=== PATIENT | female | born 1955 | race Caucasian/White ===

== ENCOUNTER 2018-08-24 12:38 | Emergency (ER) | payer OTHER, MEDICAID ==
[~2018-08-24] VITALS: Ht 144.8 cm; Wt 51.7 kg
[2018-08-24 13:06] VITALS: BP 115/61
--- NOTE | 2018-08-24 13:14 | NUR ---
pt back to er lobby with paper bundler---awaits avaible room for md baez
--- NOTE | 2018-08-24 13:40 | NUR ---
pt returned from radiology in wheelchair to er bed 09
--- NOTE | 2018-08-24 13:42 | NUR ---
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 PER CAREGIVER MECHANICAL FALL IN HER ROOM 2-3 DAYS AGO, LEFT ANKLE SWELLING REDNESS. UNABLE TO BEAR FULL WEIGHT. LEFT EYE DISCOLORATION S/P FALL. PERRLA, BRISK 3 MM. EQUAL FLAKITA STRENGTH TO UPPER AND LOWER EXTREMITIES. HOB UP. BED SIDE RAILS UP X1. ON LOW BED POSITION, LOCKED. ER MADE AWARE OF PT STATUS.
[2018-08-24 15:22] VITALS: BP 108/64
--- NOTE | 2018-08-24 15:22 | NUR ---
Patient discharged with v/s stable. Written and verbal after care instructions given and explained. Patient alert, oriented and verbalized understanding of instructions. Ambulatory with steady gait with assistance of caregiver. All questions addressed prior to discharge. ID band removed. Patient advised to follow up with PMD. Rx of Salicyclic Acid 6% topical cream, Acetaminophen given. Patient educated on indication of medication including possible reaction and side effects. Opportunity to ask questions provided and answered.
== END 2018-08-24 15:22 | disposition home or self-care (01) ==
LOC: MED 12:38
DX: S93.402A Sprain of unspecified ligament of left ankle, initial encounter (principal); S05.12XA Contusion of eyeball and orbital tissues, left eye, initial encounter; L30.9 Dermatitis, unspecified; W06.XXXA Fall from bed, initial encounter; Y93.89 Activity, other specified; Y92.89 Other specified places as the place of occurrence of the external cause; Y99.8 Other external cause status
CPT/HCPCS: 70150; 73610; 99283

== ENCOUNTER 2018-11-04 15:44 | Emergency (ER) | payer OTHER, MEDICAID ==
[~2018-11-04] VITALS: Ht 121.9 cm; Wt 53.1 kg
[2018-11-04 16:00] VITALS: BP 135/66
--- NOTE | 2018-11-04 16:05 | NUR ---
PT AMBULATED TO ER BED 11
--- NOTE | 2018-11-04 16:10 | NUR ---
C/O GENERALIZED BODY RASH FOR A FEW WEEKS. PT REPORTS 6/10 PAIN AND ITCHINESS. DENIES FEVER, COUGH, SOB, N/V/D. DENIES USE OF NEW CREAMS/SOAPS ETC.
[2018-11-04 17:04] VITALS: BP 135/66
--- NOTE | 2018-11-04 17:05 | NUR ---
Patient discharged with v/s stable. Written and verbal after care instructions given and explained. Patient alert, oriented and verbalized understanding of instructions. Ambulatory with steady gait. All questions addressed prior to discharge. ID band removed. Patient advised to follow up with PMD. Rx of CLOTRIMAZOLE & ATARAX given. Patient educated on indication of medication including possible reaction and side effects. Opportunity to ask questions provided and answered.
== END 2018-11-04 17:05 | disposition home or self-care (01) ==
LOC: MED 15:44
DX: L22 Diaper dermatitis (principal); E78.5 Hyperlipidemia, unspecified; E03.9 Hypothyroidism, unspecified; R62.50 Unspecified lack of expected normal physiological development in childhood
CPT/HCPCS: 99283

== ENCOUNTER 2019-02-20 09:44 | Emergency (ER) | payer OTHER, MEDICAID ==
[~2019-02-20] VITALS: Ht 132.1 cm; Wt 48.5 kg
[2019-02-20 09:51] VITALS: BP 111/66
--- NOTE | 2019-02-20 09:58 | NUR ---
PT AMBULATED TO ER BED 02
--- NOTE | 2019-02-20 10:30 | NUR ---
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 PT HAD UNWITNESS FALL YESTERDAY AT THE [facility]. HAS RT BALCK EYE DUE TO FALL. DENIES ANY PAIN AT THIS TIME. NO CONFUSION, HEMEATOMA OR FX NOTED . PT HAS HX OF DOWNS SYNDROME. HAS SKIN PSORIASIS, WORKS WITH POWDER COATER THREE TIMES A WEEK. PT IS AAOX4, ABLE TO COMMUNICATE. DENIES ANY PAIN AT THIS TIME. SEEN BY ER MD.WILL CONTINUE TO MONITOR THE PT.
--- NOTE | 2019-02-20 10:59 | NUR ---
PT BACK FROM CT.
[2019-02-20] MEDS ORDERED: levETIRAcetam 1,000 MG in NACL 0.9% 100 ML IV ONE (11:50)
[2019-02-20] MEDS ORDERED: levETIRAcetam 100 MG/ML VIAL IV ONE (11:54)
--- NOTE | 2019-02-20 12:18 | NUR ---
REPORT GIVEN TO AVIVA DEMPSEY AT [facility].
--- NOTE | 2019-02-20 12:33 | NUR ---
[facility] AT THE BEDSIDE, PT BEING TRANSFERED TO [facility]. PLACED THE PED NECK COLLAR TO STABILIZE THE NECK. PT WAS BACK FROM CT. VS STABLE. BP 129/97, HR 83, RR 20, O2 91% ON RA. DENIES ANY PAIN. PT BEING TARNSFERED FOR HIGHER LEVEL OF CARE.
[2019-02-20 12:36] VITALS: BP 129/97
--- NOTE | 2019-02-20 12:38 | NUR ---
[facility] CREW WAITINGV FOR THE PAPERWORK FOR THE PATIENT. CAREGIVER TO GO TO [facility] ER BY HER CAR. PT STABLE AT THIS TIME.
[2019-02-20 12:45] LABS: BASOPHILS % (AUTO) 0.5 % (0.0-2.0); EOSINOPHILS # (AUTO) 0.9 K/uL (0-0.4); EOSINOPHILS % (AUTO) 9.1 % (0.0-4.0); HEMATOCRIT 40.2 % (36-48); HEMOGLOBIN 13.1 g/dL (12.0-16.0); LYMPHOCYTES # (AUTO) 1.1 K/uL (2.5-16.5); LYMPHOCYTES % (AUTO) 11.9 % (20.5-51.1); MEAN CORPUSCULAR HEMOGLOBIN 32 pg (27-31); MEAN CORPUSCULAR HGB CONC 33 g/dL (33-37); MEAN CORPUSCULAR VOLUME 97.7 fL (80-94); MONOCYTES # (AUTO) 0.6 K/uL (0.8-1.0); MONOCYTES % (AUTO) 6.5 % (1.7-9.3); NEUTROPHILS # (AUTO) 6.8 K/uL (1.8-7.7); PLATELET COUNT (AUTO) 74 K/uL (140-450); RED BLOOD CELL COUNT(AUTO) 4.12 MIL/uL (4.20-5.40); RED CELL DISTRIBUTION WIDTH 15.4 % (11.6-13.7); WHITE BLOOD COUNT (AUTO) 9.5 K/uL (4.8-10.8)
[2019-02-20 12:47] LABS: ANION GAP 13.1 (8-16); CARBON DIOXIDE 26.6 mmol/L (21-32); CREATININE 0.8 mg/dL (0.6-1.3); POTASSIUM 3.7 mmol/L (3.5-5.1)
[2019-02-20 12:55] LABS: PROTHROMBIN TIME 10.4 secs (10.8-13.4)
== END 2019-02-20 12:38 | disposition short-term general hospital (02) ==
LOC: MED 09:44
DX: S06.6X0A Traumatic subarachnoid hemorrhage without loss of consciousness, initial encounter (principal); S00.12XA Contusion of left eyelid and periocular area, initial encounter; Z86.39 Personal history of other endocrine, nutritional and metabolic disease; W18.39XA Other fall on same level, initial encounter; Y92.89 Other specified places as the place of occurrence of the external cause; Y93.89 Activity, other specified; Y99.8 Other external cause status
CPT/HCPCS: 36415; 70450; 72125; 80048; 85025; 85610; 99285; J1953; 99284

== ENCOUNTER 2019-02-22 13:51 | Inpatient (IN) | payer OTHER, MEDICAID ==
[~2019-02-22] VITALS: Ht 144.8 cm; Wt 53.1 kg
[2019-02-22 13:56] VITALS: BP 113/65
--- NOTE | 2019-02-22 14:10 | NUR ---
PATIENT WHEELCHAIR ASSISTED TO BED 6.
--- NOTE | 2019-02-22 14:25 | NUR ---
PT BIB AMBULATORY NURSE TO THE ED WITH THE CHIEF C/O BLEEDING AROUND THE RIGHT EYE AND UPPER LIP X TODAY. BRUISES NOTED AROUND THE RIGHT EYE AND BOTH UPPER AND LOWER LIPS. NO BLEEDING FROM THE SITE AT THIS TIME. PT WAS HERE LAST FRIDAY FOR SAME REASON SEEN HEMORRHAGE IN CT HEAD AND PT WAS TRANSFERRED TO [facility]. PT NOTED WITH CRACKED SKIN ON BOTH HANDS AND FEET, RASHES ALL OVER THE BODY. HX OF PSORIASIS, DOWN SYNDROME. HX OF FALL. PLACED PT ON COMFORTABLE POSITION, COVERED WITH BLANKET. NO C/O PAIN AT THIS TIME. PT EVALUATED BY ER .
--- NOTE | 2019-02-22 14:47 | NUR ---
XRAY AT BEDSIDE
--- NOTE | 2019-02-22 15:01 | NUR ---
LAB AT BEDSIDE
--- NOTE | 2019-02-22 15:15 | NUR ---
NO RESPIRATORY DISTRES NOTED. PT IS SATURATING 100% IN ROOM AIR.
[2019-02-22 15:29] LABS: BASOPHILS # (AUTO) 0.1 K/uL (0.00-0.22); BASOPHILS % (AUTO) 0.6 % (0.0-2.0); EOSINOPHILS # (AUTO) 0.6 K/uL (0-0.4); EOSINOPHILS % (AUTO) 5.6 % (0.0-4.0); HEMATOCRIT 38.4 % (36-48); HEMOGLOBIN 12.5 g/dL (12.0-16.0); LYMPHOCYTES # (AUTO) 1.5 K/uL (2.5-16.5); LYMPHOCYTES % (AUTO) 13.5 % (20.5-51.1); MEAN CORPUSCULAR HEMOGLOBIN 32 pg (27-31); MEAN CORPUSCULAR HGB CONC 33 g/dL (33-37); MEAN CORPUSCULAR VOLUME 97.9 fL (80-94); MONOCYTES # (AUTO) 0.6 K/uL (0.8-1.0); MONOCYTES % (AUTO) 4.9 % (1.7-9.3); NEUTROPHILS # (AUTO) 8.6 K/uL (1.8-7.7); NEUTROPHILS % (AUTO) 75.4 % (42.2-75.2); PLATELET COUNT (AUTO) 87 K/uL (140-450); RED BLOOD CELL COUNT(AUTO) 3.92 MIL/uL (4.20-5.40); RED CELL DISTRIBUTION WIDTH 15.4 % (11.6-13.7); WHITE BLOOD COUNT (AUTO) 11.4 K/uL (4.8-10.8)
[2019-02-22 15:57] LABS: ANION GAP 13.3 (8-16); CARBON DIOXIDE 27.6 mmol/L (21-32); CREATININE 0.9 mg/dL (0.6-1.3); POTASSIUM 3.9 mmol/L (3.5-5.1)
[2019-02-22 15:57] LABS: APPEARANCE,URINE CLEAR (CLEAR); BILIRUBIN,URINE 1+ (NEGATIVE); BLOOD, URINE NEGATIVE (NEGATIVE); LEUKOCYTE ESTERASE ,URINE NEGATIVE (NEGATIVE); NITRITE, URINE NEGATIVE (NEGATIVE); UGLUCOSE NEGATIVE (NEGATIVE)
[2019-02-22 16:03] LABS: COLOR,URINE AMBER (YELLOW)
[2019-02-22] MEDS ORDERED: LORazepam 2 MG/ML VIAL IVP ONE ×2 (16:05→16:35)
[2019-02-22 16:09] LABS: ALBUMIN 2.8 g/dL (3.4-5.0); TOTAL BILIRUBIN 0.3 mg/dL (0.0-1.0)
--- NOTE | 2019-02-22 16:17 | NUR ---
PT MILDLY RESTLESS, REMOVED LAC IV AND MONITOR. STARTED NEW IV 20G ON R FA, COVERED WITH KERLIX. ADMINISTERED ATIVAN IVP WITH EDUCATION ORDERED.
--- NOTE | 2019-02-22 16:30 | NUR ---
CALLED [facility] #[phone] AND MADE REPORT TO WINDMILL MECHANIC GIOVANNI ANNA. REPORT NUMBER PROVIDED WAS [phone].
[2019-02-22] MEDS ORDERED: BACITRACIN OINT 500 UNITS/GM PKT TP ONE ×2 (16:50)
--- NOTE | 2019-02-22 17:45 | NUR ---
PT TAKEN TO CT.
--- NOTE | 2019-02-22 18:02 | NUR ---
BACK FROM CT.
--- NOTE | 2019-02-22 18:32 | NUR ---
RESTING IN BED COMFORTABLY. NO RESPIRATORY DISTRESS NOTED. SATURATING 99% IN ROOM AIR. VSS. DENIES PAIN. CONTINUE TO MONITOR.
--- NOTE | 2019-02-22 18:33 | NUR ---
CALL JAVON FRYE, THE PATROL DRIVER PHONE # [phone] OR [phone] FOR ANY NEEDED INFORMATION OR PT SNAKER.
--- NOTE | 2019-02-22 19:07 | NUR ---
RECEIVED REPORT FROM AVIVA EARL. TRANSFER OF CARE AT THIS TIME.
--- NOTE | 2019-02-22 19:07 | NUR ---
REPORT GIVEN TO AVIVA SHAIKH.
--- NOTE | 2019-02-22 20:15 | NUR ---
BLOOD PRESSURE IS ELEVATED 185/109 AND C/O PAIN. DR. PONCE MADE AWARE. HE SAID GIVE FIRST THE DUE LOPRESSOR AND HE WILL ORDER PAIN MEDICATION. Addendum: 02/23/19 at 0127 by Jeniffer Macias RN CANCEL ABOVE NOTES. WRONG PT.
[2019-02-22] MEDS ORDERED: NACL 0.9% 1,000 ML IV ONE (20:35)
[2019-02-22] MEDS ORDERED: NACL 0.9% 1,000 ML IV SCH (20:49)
[2019-02-22] MEDS ORDERED: HYDROcodone/APAP 7.5/325 MG 1 TAB PO PRN (20:50)
[2019-02-22] MEDS ORDERED: ACETAMINOPHEN 325 MG TAB PO PRN (20:50)
[2019-02-22] MEDS ORDERED: ONDANSETRON 4 MG/2 ML VIAL IM/IVP PRN (20:50)
--- NOTE | 2019-02-22 21:29 | NUR ---
PT RESTING IN BED RECEIVING FLUIDS AT THIS TIME. PT CALM IN BED.
--- NOTE | 2019-02-22 21:42 | NUR ---
JAVON FRYE NOTIFIED ABOUT ADMISSION OF PT.
[2019-02-22 22:02] VITALS: BP 101/55
--- NOTE | 2019-02-22 22:02 | NUR ---
ADMITTED 63 Y/O FEMALE FROM ER. REPORT GIVEN BY RAKING MACHINE OPERATOR NURSE [place]. CAME BY COLLEEN. PT ON TELE MONITOR. PT IS AWAKE BUT CONFUSED. NON-VERBAL AT THIS TIME. PT HAS DISCOLORATION ON RIGHT EYE AND ON BOTH UPPER AND LOWER LIPS. NO SOB OR RESPIRATORY DISTRESS NOTED. 02 SAT 95% ON RA TAKEN AT LEFT EARLOBE. PT HAS THICK, DRY, CRACKED HANDS AND FEET. OVERALL SKIN IS DRY AND SCALY. IV ACCESS ON RIGHT AC GAUGE 20, PATENT, INTACT AND ASYMPTOMATIC. REPOSITIONED PT. COMFORTABLE IN BED. BED IN LOW POSITION. SIDE RAILS UP X2. PADDED FOR SEIZURE PRECAUTION. BED ALARM ON. CALL LIGHT PLACED WITHIN REACH. WILL FOLLOW UP ADMIT ORDERS AND WILL CONTINUE TO MONITOR.
--- NOTE | 2019-02-22 22:03 | NUR ---
MRSA NARES SPECIMEN COLLECTED AND SENT TO LAB.
--- NOTE | 2019-02-22 22:07 | NUR ---
Patient will be admitted to care of DR BRANHAM. Admited to TELE. Will go to room 124A. Belongings list completed. Report to AVIVA GOMEZ.PT STABLE ON TRANSFER OF CARE.
[2019-02-22 22:18] LABS: PROTHROMBIN TIME 10.4 secs (10.8-13.4)
[2019-02-22 22:30] LABS: BARBITURATE, URINE NEG. ng/ml (NEG <=200); BENZODIAZEPINE, URINE NEG. ng/mL (NEG <=200); CANNABINOID, URINE NEG. ng/mL (NEG <=50); COCAINE, URINE NEG. ng/mL (NEG <=300); OPIATE, URINE NEG. ng/mL (NEG <=2000); PHENCYCLIDINE SCREEN,URINE NEG. ng/mL (NEG <=25)
[2019-02-22 23:56] LABS: FREE T4 (FREE THYROXINE) 1.12 ng/dL (0.76-1.46); MAGNESIUM 2.4 mg/dL (1.8-2.4); PHOSPHORUS 3.1 mg/dL (2.5-4.9); THYROID STIMULATING HORMONE 3.5 uIU/mL (0.34-3.74)
[2019-02-23 00:27] LABS: CKMB RELATIVE INDEX 0.7 (0.0-2.5); CREATINE KINASE MB 4.6 ng/mL (0-3.6)
[2019-02-23 00:30] VITALS: BP 84/52
--- NOTE | 2019-02-23 00:55 | NUR ---
BLOOD PRESSURE LOW 84/52. DR. PONCE MADE AWARE WITH ORDER.
[2019-02-23] MEDS ORDERED: NACL 0.9% 1,000 ML IV ONE (01:00)
[2019-02-23 02:00] VITALS: BP 111/61
--- NOTE | 2019-02-23 02:00 | NUR ---
IV BOLUS STILL INFUSING. VITAL SIGNS TAKEN. BP 111/61,HR-90,R-20 AND O2 SAT 99% ON O22L/NC. WILL STILL CONTINUE TO MONITOR.
--- NOTE | 2019-02-23 02:44 | NUR ---
ROUNDS DONE. PT ASLEEP COMFORTABLY ON BED. NO DISTRESS NOTED. VISIBLE CHEST RISE AND FALL NOTED. WILL CONTINUE TO MONITOR.
--- NOTE | 2019-02-23 04:20 | NUR ---
VITAL SIGNS TAKEN. PT SLEEPING COMFORTABLY. NO SIGNS OF SOB OR DISTRESS NOTED. VISIBLE CHEST RISE AND FALL NOTED. WILL CONTINUE TO MONITOR.
[2019-02-23 04:30] VITALS: BP 105/50
[2019-02-23 06:26] LABS: BASOPHILS # (AUTO) 0.1 K/uL (0.00-0.22); BASOPHILS % (AUTO) 0.6 % (0.0-2.0); EOSINOPHILS # (AUTO) 0.7 K/uL (0-0.4); EOSINOPHILS % (AUTO) 6.5 % (0.0-4.0); HEMATOCRIT 39.6 % (36-48); HEMOGLOBIN 12.6 g/dL (12.0-16.0); LYMPHOCYTES # (AUTO) 1.5 K/uL (2.5-16.5); LYMPHOCYTES % (AUTO) 14.4 % (20.5-51.1); MEAN CORPUSCULAR HEMOGLOBIN 32 pg (27-31); MEAN CORPUSCULAR HGB CONC 32 g/dL (33-37); MEAN CORPUSCULAR VOLUME 99.3 fL (80-94); MONOCYTES # (AUTO) 0.6 K/uL (0.8-1.0); MONOCYTES % (AUTO) 5.9 % (1.7-9.3); NEUTROPHILS # (AUTO) 7.7 K/uL (1.8-7.7); NEUTROPHILS % (AUTO) 72.6 % (42.2-75.2); PLATELET COUNT (AUTO) 71 K/uL (140-450); RED BLOOD CELL COUNT(AUTO) 3.99 MIL/uL (4.20-5.40); RED CELL DISTRIBUTION WIDTH 15.9 % (11.6-13.7); WHITE BLOOD COUNT (AUTO) 10.6 K/uL (4.8-10.8)
[2019-02-23 06:53] LABS: ANION GAP 11.3 (8-16); CARBON DIOXIDE 28.8 mmol/L (21-32); CREATININE 0.7 mg/dL (0.6-1.3); POTASSIUM 4.1 mmol/L (3.5-5.1)
--- NOTE | 2019-02-23 07:00 | NUR ---
LAB CALLED FOR NA LEVEL 162. PAGED DR. PONCE,RESIDENT.LEFT MESSAGE AND WAITING FOR CALL BACK.
[2019-02-23 07:04] LABS: CHOL/HDL RATIO 2.8 (1-4.5)
--- NOTE | 2019-02-23 07:20 | NUR ---
ENDORSED PT TO AM SHIFT RN NURSE FOR CONTINUITY OF CARE. PT IN STABLE CONDITION. NO DISTRESS NOTED.
--- NOTE | 2019-02-23 07:21 | NUR ---
RECEIVED BEDSIDE REPORT FROM PRINTING ASSISTANT NURSE. PATIENT IS DROWSY, RESPONSIVE TO TOUCH. APHASIC. ON 3L NC, NO SIGNS OF DISTRESS. NOT AMBULATORY AT THIS TIME, FALL RISK PROTOCOL IN PLACE. SKIN HAS SEVERE PSORIATIC SPONGIOTIC DERMATITIS ON FLAKITA FEET AND FLAKITA HANDS. SHE HAS REDNESS THROUGHOUT BODY. R EYE HAS BRUISE, AND A FEW SCRATCHES, UPPER LIP SWOLLEN WITH SCAB. PATIENT INCONTINENT. IV ON R AC 20G INFUSING NS AT 50. CLEAN, DRY AND INTACT. BED IN LOW POSITION. CALL LIGHT WITHIN REACH. WILL CONTINUE TO MONITOR THE PATIENT
[2019-02-23] MEDS ORDERED: NACL 0.45% 1,000 ML IV SCH ×2 (07:45→09:30)
[2019-02-23 08:00] VITALS: BP 105/59
--- NOTE | 2019-02-23 08:28 | NUR ---
PATIENT HAS BEEN SCREENED AND CATEGORIZED HIGH NUTRITION RISK. PATIENT WILL BE SEEN WITHIN 1-2 DAYS OF ADMISSION. 02/23/19-02/24/[address]
[2019-02-23] MEDS ORDERED: LACTOBACILLUS RHAMNOSUS GG 1 EACH CAP PO SCH (09:00)
[2019-02-23] MEDS ORDERED: levETIRAcetam 500 MG TAB PO SCH (09:00)
--- NOTE | 2019-02-23 09:00 | NUR ---
UNABLE TO GIVE PATIENTS MEDICATIONS AT THIS TIME, TOO DROWSY TO ADMINISTER, DR GARDNER IS AWARE
[2019-02-23] MEDS ORDERED: CYAN100T65 PO (09:58)
[2019-02-23] MEDS ORDERED: VITD1000 PO (09:58)
[2019-02-23] MEDS ORDERED: HYD1C TP (09:58)
[2019-02-23] MEDS ORDERED: LEVE1000 PO (09:58)
[2019-02-23] MEDS ORDERED: CLOB0.0525 TP (09:58)
[2019-02-23] MEDS ORDERED: SYN.075 PO (09:58)
[2019-02-23] MEDS ORDERED: KEN.1O TP (09:58)
[2019-02-23] MEDS ORDERED: LORA10TA19 PO (09:58)
[2019-02-23] MEDS ORDERED: [UNRECOGNIZED DRUG - CODE] TP (09:58)
[2019-02-23] MEDS ORDERED: DEXA5SUS BOTH EYES (09:58)
[2019-02-23] MEDS: BACITRACIN ZINC/POLYMYXIN B OINT 30 GM TUBE TP SCH ×2 (10:07→22:18)
--- NOTE | 2019-02-23 10:15 | NUR ---
SWALLOW EVAL DONE. PATIENT NOT RESPONSIVE TO FEEDINGS, DR ARTEAGA MADE AWARE, SHE SAID OK TO KEEP PATIENT NPO FOR NOW AND WILL UPDATE MEDICATIONS
--- NOTE | 2019-02-23 10:43 | NUR ---
*S.T. Bedside swallow eval completed* See report for details. Pt presents w/ profound oropharyngeal dysphagia c/b no response to oral tactile stimuli, with no attempt to manipulate an oral bolus of P.O. trials presented, despite max cueing and multiple attempts. No pharyngeal swallow response observed. Pt is at high risk of aspiration. Recommend: 1) Continue strict NPO w/ non-oral means of nutrition, hydration and meds. 2) S.T. to follow for swallow tx 2-3 x/1 week w/ P.O. trials. D/w RN Belkys. Pt left in stable condition w/ student nurses present. Time [phone]
[2019-02-23] MEDS ORDERED: DEXT 5% / NACL 0.45% 1,000 ML IV SCH (10:45)
[2019-02-23] MEDS ORDERED: ACETAMINOPHEN 650 MG SUPP RC PRN (10:45)
[2019-02-23] MEDS ORDERED: MORPHINE SULFATE 2 MG/ML SYR IVP PRN (10:45)
[2019-02-23 10:50] LABS: ANION GAP 13.1 (8-16); CARBON DIOXIDE 25.3 mmol/L (21-32); CREATININE 0.7 mg/dL (0.6-1.3); POTASSIUM 3.4 mmol/L (3.5-5.1)
--- NOTE | 2019-02-23 11:14 | NUR ---
DR GARDNER IN THE ROOM SPEAKING TO THE CREW CHIEF FROM [employer]
--- NOTE | 2019-02-23 11:30 | NUR ---
P.T. NOTES UNABLE TO BE SEEN FOR P.TAleksey GARCIA DUE TO PATIENT WAS SLEEPING AND UNABLE TO BE AWAKEN WHEN ATTEMPTED TO EVALUATE. HER 2 CAREGIVERS WERE BOTH AT HER BEDSIDE AND STATES THAT PATIENT DOES NOT NORMALLY SLEEP AT THEIR BOARD AND CARE SO THIS IS UNUSUAL. PLAN: WE'LL FOLLOW UP AGAIN TOMORROW WHEN AND IF SHE IS MORE AWAKE AND ALERT TO PARTICIPATE WITH THE EVALUATION..
--- NOTE | 2019-02-23 13:00 | NUR ---
PATIENT IS SLEEPING. NO SIGNS OF DISTRESS
--- NOTE | 2019-02-23 14:09 | NUR ---
PATIENT IS SLEEPING. PLACED A BOARD ON ARM TO PREVENT HER FROM FOLDING ARM SO IVF CAN GO IN. WILL CONTINUE TO MONITOR
--- NOTE | 2019-02-23 14:10 | NUR ---
02/23/19 RD INITIAL ASSESSMENT COMPLETED PLEASE REFER TO NUTRITION ASSESSMENT UNDER CARE ACTIVITY FOR ESTIMATED NUTRITIONAL NEEDS. 1. CONTINUE NPO TOLERATED 2. ADVANCE DIET PER SWALLOW EVAL RECOMMENDATION. 3. RD TO FOLLOW-UP 2-3 DAYS, HIGH RISK MAYNOR ALVARADO, RD
[2019-02-23 16:00] VITALS: BP 101/47
[2019-02-23] MEDS ORDERED: POTASSIUM CHLORIDE 40 MEQ, LIDOCAINE 1% 25 MG in NACL 0.9% 250 ML IV SCH (16:00)
--- NOTE | 2019-02-23 16:00 | NUR ---
PATIENT IS SLEEPING. WILL CONTINUE TO MONITOR
--- NOTE | 2019-02-23 18:09 | NUR ---
DR ALBA GOT SKIN SCRAPING TO R/O SCABIES
--- NOTE | 2019-02-23 18:46 | NUR ---
administered acosta. 200 out
--- NOTE | 2019-02-23 19:10 | NUR ---
GAVE BEDSIDE REPORT TO SUPERVISOR DIALS NURSE. PATIENT ENDORSED IN STABLE CONDITION
--- NOTE | 2019-02-23 19:25 | NUR ---
RECEIVED BEDSIDE REPORT FROM DAY SHIFT NURSE. PATIENT IS AWAKE, NON-VERBAL, AND CONFUSED. RESPIRATION EVEN UNLABORED ON 3L NC O2. SKIN IS WARM AND DRY. HANDS AND FEET ARE DRY AND SCALY. PATIENT HAS DISCOLORATION ON THE RIGHT EYE. IV PATENT AND INTACT. WILLIS DRAINING YELLOW URINE NOTED. PLAN OF CARE WAS DISCUSSED. ALL SAFETY MEASURES IN PLACE. BED IS AT LOW POSITION. CALL LIGHT WITHIN REACH. WILL CONTINUE TO MONITOR.
[2019-02-23 20:00] VITALS: BP 108/54
--- NOTE | 2019-02-23 20:00 | NUR ---
INITIAL ASSESSMENT DONE. VITALS WERE TAKEN. WILL CONTINUE TO MONITOR.
[2019-02-23] MEDS ORDERED: AMMONIUM LACTATE TP SCH (21:00)
[2019-02-23] MEDS ORDERED: CLOBETASOL PROPIONATE 0.05% TP SCH (21:00)
--- NOTE | 2019-02-23 21:00 | NUR ---
ALL SCHEDULED MEDS WERE GIVEN PER ORDER. NO ASE NOTED. WILL CONTINUE TO MONITOR.
[2019-02-23] MEDS: levETIRAcetam 500 MG in NACL 0.9% 100 ML IV SCH (21:59)
[2019-02-23] MEDS: TRIAMCINOLONE 0.1% OINT 80 GM TUBE TP SCH (21:59)
[2019-02-23] MEDS: PETROLATUM WHITE 30 GM TUBE TP SCH (22:00)
--- NOTE | 2019-02-23 22:00 | NUR ---
PATIENT SLEEPING RESPIRATION EVEN UNLABORED ON 2L NC O2. NO DISTRESS NOTED. WILL CONTINUE TO MONITOR.
[2019-02-24] VITALS: BP 118/65
--- NOTE | 2019-02-24 | NUR ---
VITALS WERE TAKEN. PATIENT IN STABLE CONDITION. WILL CONTINUE TO MONITOR.
--- NOTE | 2019-02-24 02:30 | NUR ---
CHECKED ON PATIENT. PATIENT SLEEPING RESPIRATION EVEN UNLABORED ON 2L NC O2. NO DISTRESS NOTED. WILL CONTINUE TO MONITOR.
[2019-02-24 04:00] VITALS: BP 112/70
--- NOTE | 2019-02-24 04:00 | NUR ---
VITALS WERE TAKEN. PROVIDED GOOD ELVIA CARE AND CATHETER CARE. PATIENT IN STABLE CONDITION. WILL CONTINUE TO MONITOR.
--- NOTE | 2019-02-24 04:47 | NUR ---
PATIENT IV GOT PULLED. NO ACTIVE BLEEDING SEEN. CANNULA TIP INTACT. INSERTED A NEW ONE TO THE RIGHT HAND 24G. WILL CONTINUE TO MONITOR.
[2019-02-24 06:20] LABS: BASOPHILS % (AUTO) 0.4 % (0.0-2.0); EOSINOPHILS # (AUTO) 0.6 K/uL (0-0.4); EOSINOPHILS % (AUTO) 4.9 % (0.0-4.0); HEMATOCRIT 40.6 % (36-48); HEMOGLOBIN 12.8 g/dL (12.0-16.0); LYMPHOCYTES # (AUTO) 1.3 K/uL (2.5-16.5); LYMPHOCYTES % (AUTO) 10.5 % (20.5-51.1); MEAN CORPUSCULAR HEMOGLOBIN 32 pg (27-31); MEAN CORPUSCULAR HGB CONC 32 g/dL (33-37); MEAN CORPUSCULAR VOLUME 100.1 fL (80-94); MONOCYTES # (AUTO) 0.7 K/uL (0.8-1.0); MONOCYTES % (AUTO) 5.9 % (1.7-9.3); NEUTROPHILS # (AUTO) 9.8 K/uL (1.8-7.7); NEUTROPHILS % (AUTO) 78.3 % (42.2-75.2); PLATELET COUNT (AUTO) 64 K/uL (140-450); RED BLOOD CELL COUNT(AUTO) 4.05 MIL/uL (4.20-5.40); RED CELL DISTRIBUTION WIDTH 16.4 % (11.6-13.7); WHITE BLOOD COUNT (AUTO) 12.5 K/uL (4.8-10.8)
[2019-02-24 06:32] LABS: ANION GAP 16.4 (8-16); CARBON DIOXIDE 24.5 mmol/L (21-32); CREATININE 0.8 mg/dL (0.6-1.3); POTASSIUM 3.9 mmol/L (3.5-5.1)
[2019-02-24 06:43] LABS: MAGNESIUM 2.2 mg/dL (1.8-2.4); PHOSPHORUS 2.5 mg/dL (2.5-4.9)
--- NOTE | 2019-02-24 07:05 | NUR ---
RECEIVED BEDSIDE REPORT FROM MEAT MANAGER NURSE, BRODY, AT BEDSIDE. PATIENT IS AWAKE, OX1 TO NAME, NON-VERBAL, AND CONFUSED. RESPIRATION EVEN UNLABORED ON 3L NC O2. SKIN IS WARM AND DRY. HANDS AND FEET ARE CRUSTED AND HAVE FISSURES. PATIENT HAS DISCOLORATION ON THE RIGHT EYE. IV TO THE RIGHT HAND, PATENT AND INTACT, RUNNING D5 1/2NS AT 45ML/HR. WILLIS CATH IN PLACE DRAINING YELLOW URINE. ALL SAFETY MEASURES IN PLACE. FALL AND SZ PRECAUTION IN PLACE. BED IS AT LOWEST POSITION. CALL LIGHT WITHIN REACH. PLACE PT BACK ON TELE MONITOR HOWEVER, PT CONSTANTLY REMOVES IT. WILL CONTINUE TO MONITOR.
--- NOTE | 2019-02-24 07:20 | NUR ---
ENDORSED PATIENT TO DAY SHIFT NURSE. PATIENT IN STABLE CONDITION.
[2019-02-24 08:00] VITALS: BP 114/42
[2019-02-24] MEDS: LORazepam 2 MG/ML VIAL IVP PRN ×2 (08:12→22:50)
--- NOTE | 2019-02-24 08:15 | NUR ---
CLOTH SPREADER HAS CLEANED PT, BED BATH GIVEN.
--- NOTE | 2019-02-24 08:25 | NUR ---
PT HAS PINK RASH ALL OVER HER BODY AND PT IS SCRATCHING HERSELF AND RESTLESS. WILL GIVE ATIVAN TO CALM PT DOWN. Addendum: 02/24/19 at 1610 by Faisal Jiang RN TIME 0805
[2019-02-24] MEDS: DEXTROSE 5% 1,000 ML IV SCH ×2 (09:40→22:50)
[2019-02-24] MEDS: TRIAMCINOLONE 0.1% OINT 80 GM TUBE TP SCH ×2 (09:45→21:02)
[2019-02-24] MEDS: BACITRACIN ZINC/POLYMYXIN B OINT 30 GM TUBE TP SCH ×2 (09:47→21:03)
--- NOTE | 2019-02-24 09:50 | NUR ---
MEDICATION GIVEN, TRIAMCINOLONE APPLIED TO ENTIRE BODY. AND POLYSPORIN CREAM TO LIPS.
[2019-02-24] MEDS: levETIRAcetam 500 MG in NACL 0.9% 100 ML IV SCH ×2 (09:54→21:02)
--- NOTE | 2019-02-24 10:25 | NUR ---
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 HAS BEEN FOLLOW UP OUT PATIENT SOYBEAN SPECIALTIES COOK WITH DR. KULKARNI, RECEIVING UVB X3 WEEK. ALL ABOVE INFORMATION OBTAINED FROM ADMISSION H&P. PT. IS AWAKE, FOLLOW SIMPLE DIRECTIONS WITH GUIDES. PT. HAS NO OPEN ACTIVE WOUND. RIGHT ORBIT AND ELVIA-ORBIT SKIN INTACT WITH PURPLE COLOR BRUISES AND TEARING AT TIMES, NO PAIN. POC DISCUSSED WITH DR. GENTILE AND WILL CONTINUE CURRENT TREATMENTS. RECOMMEND TO CONTINUE TO FOLLOW UP WITH DR. KULKARNI WHEN DISCHARGE. Addendum: 02/24/19 at 1521 by Koki Gan RN (Grace) SCREEN LOW MATHEW SCALE AT RISK, CONTINUE TO FOLLOW PRESSURE ULCER PREVENTION INTERVENTIONS. -TURN AND REPOSITION PATIENT Q 2H -ASSESS AND MONITOR SKIN CONDITION DURING POSITION CHANGE -OFFLOAD BILATERAL HEELS BY PLACING PILLOWS UNDER CALVES AT ALL TIMES, UNLESS OTHERWISE CONTRAINDICATED -PRESSURE REDISTRIBUTION BY PLACING PILLOWS AND OFFLOADING SACRALCOCCYX -KEEP SKIN CLEAN AND DRY AT ALL TIMES.
[2019-02-24 12:00] VITALS: BP 100/51
--- NOTE | 2019-02-24 15:30 | NUR ---
PT'D NEPHEW TALA VISITED. TALA # [phone]. ONLY FAMILY MEMBER LEFT FOR PT. INSTRUCTED TALA ABOUT PPE.
--- NOTE | 2019-02-24 15:40 | NUR ---
TALA HAS TALKED WITH ANTHONY DOWNING.
[2019-02-24 16:00] VITALS: BP 101/45
--- NOTE | 2019-02-24 16:20 | NUR ---
JAVON FROM PT'S SHELTER CAME. JAVON SAID TALA IS USUALLY THE DECISION MAKER IF PT IS NOT ABLE TO SPEAK FOR HERSELF. JAVON SAID PT HAS BEEN UNDER UVB TX WITH THE SOCIAL SERVICES MANAGER.
--- NOTE | 2019-02-24 17:57 | NUR ---
* ST TX NOTE * Pt seen at bedside. Pt alert but moderately to minimally cooperative, appearing to not be in pain at this time d/t lack of facial grimacing, groaning, etc. Pt tolerating 1/3 alternating PO trials of puree apple sauce as well as 1/3 alternating PO trials of honey-thick apple juice, all 1-3 CCs at a time via a spoon w/o s/s of aspiration or choking. Pt however holding 2nd boluses of puree and HTL in oral cavity for extended amount of time, and possibly pocketing boluses. For 3rd round of trials, pt not allowing for PO intake by not opening mandible, and sucking boluses through pt's teeth, but eventually expelling 3rd round of boluses and potentially pocketed 2nd round of boluses out of oral cavity. Pt requiring total assistance to clear oral cavity of residue and pocketed boluses. Nsg Faisal and pt education completed re: pt totally dependent on caregiver for aspiration precautions and oral hygiene, as well as pt presenting with moderate to severe oral preparatory dysphagia at this time, w/pt indifferent but caregiver/Nsg Faisal verbalizing understanding and agreement w/clinician's recommendations. Recommend: - CONTINUE NPO - PROVIDE ORAL CARE/HYGIENE AT LEAST 2X/DAY IN AM & PM - ST to ff 1x/week for 1 more week to assess pt's tolerance for PO intake. - RD referral for possible artificial means of nutrition 2/2 to pt presenting with poor prognosis for obtaining nutrition/hydration through PO intake.
[2019-02-24] MEDS ORDERED: PERMETHRIN 5% 60 GM TUBE TP ONE (18:30)
--- NOTE | 2019-02-24 19:20 | NUR ---
REPORT RECEIVED FROM AM NURSE AT BEDSIDE. PT IN STABLE CONDITION. AAOX0-1. PT IS CONFUSED. BOARD UPDATED. FLACC 0. NO SOB ON RA. AFEBRILE. PT IS BEDBOUND. PT ON SZ PRECAUTION. PT IS NONVERBAL. PT HAS DEVELOPMENTAL DELAY. PT HAS WILLIS IN PLACE. IV SITE R HAND 24G RUNNING D5@75ML/HR PATENT AND INTACT. SKIN WARM, DRY, AND INTACT BUT EXTREMELY DRY. PT HAS FISSURES ON THE HANDS AND FEET AND ARE VERY CRUSTED. BED LOCKED IN LOW POSITION. CALL NARANJO WITHIN REACH. SAFETY PRECAUTION IN PLACE. ALL NEEDS MET AT THIS TIME.
[2019-02-24 19:22] LABS: ALBUMIN 2.4 g/dL (3.4-5.0); ANION GAP 17.8 (8-16); CARBON DIOXIDE 26.6 mmol/L (21-32); CREATININE 0.8 mg/dL (0.6-1.3); POTASSIUM 3.4 mmol/L (3.5-5.1); TOTAL BILIRUBIN 0.3 mg/dL (0.0-1.0)
[2019-02-24 20:00] VITALS: BP 91/45
--- NOTE | 2019-02-24 21:02 | NUR ---
PARUL TAYLOR AND RUNNING. KENALOG, POLYSPORIN, VASELINE, AND PERMETHRIN APPLIED TO SKIN. PT TOLERATED WELL.
[2019-02-24] MEDS: PETROLATUM WHITE 30 GM TUBE TP SCH (21:03)
--- NOTE | 2019-02-24 22:50 | NUR ---
ATIVAN GIVEN FOR AGITATION. PT TOLERATED WELL.
[2019-02-25] VITALS: BP 100/56
--- NOTE | 2019-02-25 00:50 | NUR ---
PT AWAKE AND ALERT. REAPPLIED REMAINING PERMETHRIN. PT TOLERATED WELL.
--- NOTE | 2019-02-25 02:25 | NUR ---
PT LAYING IN BED TOSSING AND TURNING. NO S/S OF DISTRESS NOTED. NO COMPLAINTS OF PAIN. NO SOB. AFEBRILE. WILL CONTINUE TO MONITOR.
--- NOTE | 2019-02-25 03:45 | NUR ---
PT SLEEPING COMFORTABLY BUT AROUSABLE. NO S/S OF DISTRESS NOTED. RESPIRATIONS EVEN, UNLABORED, AND WNL. WILL CONTINUE TO MONITOR.
--- NOTE | 2019-02-25 05:34 | NUR ---
IVERMECTIN TABS NOT GIVEN DUE TO PATIENT BEING NPO AND FAILING HER SWALLOW EVAL.
[2019-02-25 06:22] LABS: HEMATOCRIT 38.7 % (36-48); HEMOGLOBIN 12.3 g/dL (12.0-16.0); MEAN CORPUSCULAR HEMOGLOBIN 31 pg (27-31); MEAN CORPUSCULAR HGB CONC 32 g/dL (33-37); MEAN CORPUSCULAR VOLUME 98.4 fL (80-94); PLATELET COUNT (AUTO) 58 K/uL (140-450); RED BLOOD CELL COUNT(AUTO) 3.93 MIL/uL (4.20-5.40); RED CELL DISTRIBUTION WIDTH 15.4 % (11.6-13.7); WHITE BLOOD COUNT (AUTO) 13.6 K/uL (4.8-10.8)
[2019-02-25] MEDS ORDERED: IVERMECTIN 3 MG PO SCH (06:30)
[2019-02-25 06:52] LABS: ANION GAP 12.5 (8-16); CARBON DIOXIDE 28.1 mmol/L (21-32); CREATININE 0.7 mg/dL (0.6-1.3); POTASSIUM 3.6 mmol/L (3.5-5.1)
[2019-02-25 06:55] LABS: PHOSPHORUS 2.6 mg/dL (2.5-4.9)
--- NOTE | 2019-02-25 07:30 | NUR ---
RECEIVED REPORT FROM MANAGEMENT REP RN. PATIENT IS FULL CODE, NKA, IV TO RIGHT HAND 24 GAUGE. SKIN IS INTACT, EXTREMELY RED AND DRY/FLAKY (POSSIBLE SCABIES). AAOX0/1, NPO D/T FAILING SWALLOW EVAL X2. RECEIVED CRITICAL FOR SODIUM OF 156, DID NOT REPORT TO DR D/T LEVEL IS TRENDING DOWN. WILL CONTINUE WITH PLAN OF CARE FOR THE DAY.
[2019-02-25 08:00] VITALS: BP 116/56
[2019-02-25 09:53] LABS: LYMPHOCYTES % (MANUAL) 8 % (20-46); MONOCYTES % (MANUAL) 4 % (5-12)
[2019-02-25] MEDS: HYDROCORTISONE 1% CRM 30 GM TUBE TP SCH ×2 (09:59→21:45)
[2019-02-25] MEDS: TRIAMCINOLONE 0.1% OINT 80 GM TUBE TP SCH ×2 (09:59→21:45)
[2019-02-25] MEDS: BACITRACIN ZINC/POLYMYXIN B OINT 30 GM TUBE TP SCH ×2 (09:59→21:45)
[2019-02-25] MEDS: levETIRAcetam 500 MG in NACL 0.9% 100 ML IV SCH ×2 (09:59→21:44)
--- NOTE | 2019-02-25 10:00 | NUR ---
ADMINISTERED CREAM TO PATIENTS BODY, BRANDON TERAN IVPB. ASSISTED PRECAST WORKER IN CHANGING PATIENTS SHEETS AND REPOSITIONING. CHANGED SUKHDEV AROUND PATIENTS IV SITE. PATIENT IS VERY DROWSY, AROUSABLE BUT FALLS ASLEEP RIGHT AWAY. PATIENTS VITAL SIGNS WNL.
--- NOTE | 2019-02-25 11:00 | NUR ---
INSERTED NG TUBE 14FR PER DR ORDER. PUSHED 30ML OF AIR THROUGH TUBE AND HEARD SWOOSH. NOTIFIED DR THAT CXR CAN BE ORDERED TO VERIFY PLACEMENT.
[2019-02-25] MEDS: DEXTROSE 5% 1,000 ML IV SCH (11:08)
--- NOTE | 2019-02-25 14:55 | NUR ---
RD RECOMMENDATIONS FOR TUBE FEEDING VIA NG-TUBE: JEVITY @ 55 ML/HR X 24 HR WITH FREE WATER FLUSH OF 130 ML Q6H. THIS WILL PROVIDE 1320 ML, 1584 KCAL, AND 73 GM OF PROTEIN, WHICH MEETS 100% OF ESTIMATED NEEDS.
--- NOTE | 2019-02-25 14:57 | NUR ---
GRANT spoke to Dr. Garcia regarding patient's healthcare decision maker. GRANT contacted patient's assisted facility and spoke to Will Lorenzo - Straw Hat Washer Operator [phone]. Per Will, patient does not have a conservator and patient's IRC worker is Sumaya Conner [phone]. GRANT informed Dr. Garcia. GRANT/ANTHONY will follow up as needed.
[2019-02-25 16:00] VITALS: BP 121/86
--- NOTE | 2019-02-25 18:40 | NUR ---
INITIATED TUBE FEEDING JEVITY 1.2. BEGAN AT 10ML/HR WITH A GOAL OF 55ML/HR AND WATER FLUSH 130ML Q6H. WILL ENDORSE TO VP PRODUCT MARKETING
--- NOTE | 2019-02-25 19:30 | NUR ---
RECEIVED BEDSIDE REPORT FROM AM SHIFT RN [place], FOR PT'S CONTINUITY OF CARE. PT IS LYING DOWN, APPEARS TO BE ASLEEP. PT IS APHASIC, IS ON ROOM AIR, HAS RIGHT HAND 24G WITH D5 AT 75ML/HR, JEVITY 1.2 AT 10ML/HR THROUGH NG TUBE. PT HAS WILLIS CATHETER, IS INCONTINENT. SAFETY MEASURES IN PLACE. SEIZURE AND FALL PRECAUTION IN PLACE. WILL MONITOR PT THROUGHOUT SHIFT.
[2019-02-25] MEDS: PETROLATUM WHITE 30 GM TUBE TP SCH (21:45)
--- NOTE | 2019-02-25 21:45 | NUR ---
ADMINISTERED SCHEDULED IV ABX, AND TOPICAL MEDICATIONS ORDERED. ASSISTED SUPPLIER DIVERSITY DIRECTOR WITH CHANGING AND REPOSITIONING. PT TOLERATED ACTIVITY WELL.
[2019-02-26] VITALS: BP 105/57
--- NOTE | 2019-02-26 | NUR ---
VS CHECKED AND CHARTED. PT ASLEEP WITH NO VISIBLE SIGNS OF DISTRESS. WILL CONTINUE TO MONITOR PT.
[2019-02-26] MEDS: DEXTROSE 5% 1,000 ML IV SCH ×2 (01:32→14:15)
--- NOTE | 2019-02-26 01:32 | NUR ---
ADMINISTERED NEW IV FLUID ORDERED. PT ASLEEP WITH NO SIGNS OF DISTRESS. WILL CONTINUE TO MONITOR PT.
--- NOTE | 2019-02-26 04:45 | NUR ---
ASSISTED LASER TECHNICIAN IN CHANGING AND REPOSITIONING PT. PT WOULD SCREAM OUT OCCASIONAL "OUCH", BUT PT TOLERATED ACTIVITY WELL. WIPED FACE WITH WARM WATER. WILL CONTINUE TO MONITOR PT.
[2019-02-26 06:15] LABS: BASOPHILS # (AUTO) 0.1 K/uL (0.00-0.22); BASOPHILS % (AUTO) 0.4 % (0.0-2.0); EOSINOPHILS # (AUTO) 0.7 K/uL (0-0.4); EOSINOPHILS % (AUTO) 5.3 % (0.0-4.0); HEMATOCRIT 35.9 % (36-48); HEMOGLOBIN 11.4 g/dL (12.0-16.0); LYMPHOCYTES # (AUTO) 1.3 K/uL (2.5-16.5); LYMPHOCYTES % (AUTO) 10.7 % (20.5-51.1); MEAN CORPUSCULAR HEMOGLOBIN 32 pg (27-31); MEAN CORPUSCULAR HGB CONC 32 g/dL (33-37); MEAN CORPUSCULAR VOLUME 99.2 fL (80-94); MONOCYTES # (AUTO) 0.6 K/uL (0.8-1.0); MONOCYTES % (AUTO) 4.4 % (1.7-9.3); NEUTROPHILS # (AUTO) 9.9 K/uL (1.8-7.7); NEUTROPHILS % (AUTO) 79.2 % (42.2-75.2); PLATELET COUNT (AUTO) 66 K/uL (140-450); RED BLOOD CELL COUNT(AUTO) 3.62 MIL/uL (4.20-5.40); RED CELL DISTRIBUTION WIDTH 15.9 % (11.6-13.7); WHITE BLOOD COUNT (AUTO) 12.6 K/uL (4.8-10.8)
--- NOTE | 2019-02-26 06:27 | NUR ---
PT ASLEEP WITH NO SIGNS OF DISTRESS. WILL ENDORSE TO AM SHIFT RN FOR PT'S CONTINUITY OF CARE.
[2019-02-26] MEDS ORDERED: BISACODYL 10 MG SUPP RC PRN (06:40)
[2019-02-26 06:55] LABS: ANION GAP 11.8 (8-16); CARBON DIOXIDE 28.5 mmol/L (21-32); CREATININE 0.9 mg/dL (0.6-1.3); POTASSIUM 3.3 mmol/L (3.5-5.1)
[2019-02-26] MEDS ORDERED: BISACODYL 10 MG SUPP RC SCH (06:57)
[2019-02-26 07:02] LABS: MAGNESIUM 2.1 mg/dL (1.8-2.4); PHOSPHORUS 3.2 mg/dL (2.5-4.9)
--- NOTE | 2019-02-26 07:19 | NUR ---
RECEIVED REPORT FROM SURVEY ENGINEER RN. PATIENT IS SLEEPING IN BED. FULL CODE, NKA, ON ROOM AIR. PATIENT IS ON CONTACT PRECAUTIONS FOR POSSIBLE SCABIES, PENDING SKIN SCRAPE. IV LINE TO RIGHT HAND 24G. PATIENT HAS AN NG TUBE PLACED, ON TUBE FEEDING, JEVITY 1.2 RUNNING AT 55ML/HR. WILL CONTINUE WITH PLAN OF CARE FOR THE DAY.
--- NOTE | 2019-02-26 08:00 | NUR ---
ADMINISTERED SUPPOSITORY PER ORDER.
[2019-02-26] MEDS: BACITRACIN ZINC/POLYMYXIN B OINT 30 GM TUBE TP SCH ×2 (09:00→21:00)
[2019-02-26] MEDS: TRIAMCINOLONE 0.1% OINT 80 GM TUBE TP SCH ×2 (09:00→21:54)
[2019-02-26] MEDS: HYDROCORTISONE 1% CRM 30 GM TUBE TP SCH ×2 (09:00→21:00)
[2019-02-26] MEDS: levETIRAcetam 500 MG in NACL 0.9% 100 ML IV SCH ×2 (09:00→21:53)
--- NOTE | 2019-02-26 09:22 | NUR ---
Order for dc planning for SNF. Called & spoke w pt's [facility] heel caser Sumaya Conner, ph [phone]. Per Sumaya there is no conservatorship/public guardian, family is to make decision for PEG, SNF any healthcare decisions. If had no family then they would make decision. Since has nephew he would make decision. Updated pt's nurse, updated Processor Helper. informed. After hours [facility] line, .
[2019-02-26] MEDS ORDERED: POTASSIUM CHLORIDE 20% 40 MEQ/15 ML UDC GT SCH (10:51)
--- NOTE | 2019-02-26 11:19 | NUR ---
APPLIED COLD COMPRESS TO AXILLARY AREAS FOR TEMP OF 99.9. PATIENT IS SITTING UP IN BED SLEEPING. NO COMPLAINTS AT THIS TIME
--- NOTE | 2019-02-26 11:37 | NUR ---
SPOKE TO URMILA OF [facility] AND GAVE HER PATIENTS NEPHEW (TALA)'S NUMBER. WAS INFORMED TO FAX OVER FACESHEET, H&P, HOSPICE EVALUATION ORDER TO HER AT [phone]
--- NOTE | 2019-02-26 13:30 | NUR ---
PATIENT IS RESTING QUIETLY IN BED. NO COMPLAINTS AT THIS TIME.
--- NOTE | 2019-02-26 14:58 | NUR ---
02/26/19 RD FOLLOW UP COMPLETED PLEASE REFER TO NUTRITION ASSESSMENT UNDER CARE ACTIVITY FOR ESTIMATED NUTRITIONAL NEEDS. 1. RECOMMEND GLUCERNA @ 55ML/HR TOLERATED -THIS WILL PROVIDE 1584KCAL AND 79G PROTEIN 2. CONTINUE FWF @ 130ML Q6H 3. RD TO FOLLOW-UP 2-3 DAYS, HIGH RISK [address]NOR ALVARADO RD
[2019-02-26 16:00] VITALS: BP 87/35
--- NOTE | 2019-02-26 18:48 | NUR ---
CHANGED PATIENTS TUBE FEEDING. WILL ENDORSE PATIENT TO IT TECHNICAL SUPPORT SPECIALIST FOR CONTINUITY OF CARE.
--- NOTE | 2019-02-26 19:35 | NUR ---
RECEIVED REPORT FROM DALIA RN. PT IS NONVERBAL W/ CONTACT PRECAUTIONS. IV FLUID INFUSING VIA PUMP. PT IS BEDBOUND. NAD NOTED.
[2019-02-26 20:30] VITALS: BP 99/45
[2019-02-26] MEDS: PETROLATUM WHITE 30 GM TUBE TP SCH (21:00)
[2019-02-26] MEDS ORDERED: HYDRAGUARD CREAM TP ONE (22:29)
--- NOTE | 2019-02-26 23:30 | NUR ---
PT VS WNL BASED ON THE LAST 24 HRS VS. MED PASS, AND NSG SHIFT ASSESSMENT COMPLETED. WILL CONT TO MONITOR FOR CHANGES.
--- NOTE | 2019-02-27 03:30 | NUR ---
ON ROUNDS NO CHANGE IN PATIENT STATUS. REMAINS ON BR., ASLEEP, NAD NOTED.
[2019-02-27 06:35] LABS: HEMATOCRIT 38.1 % (36-48); HEMOGLOBIN 12.3 g/dL (12.0-16.0); MEAN CORPUSCULAR HEMOGLOBIN 32 pg (27-31); MEAN CORPUSCULAR HGB CONC 32 g/dL (33-37); PLATELET COUNT (AUTO) 71 K/uL (140-450); RED BLOOD CELL COUNT(AUTO) 3.88 MIL/uL (4.20-5.40); RED CELL DISTRIBUTION WIDTH 15.8 % (11.6-13.7); WHITE BLOOD COUNT (AUTO) 10.5 K/uL (4.8-10.8)
--- NOTE | 2019-02-27 07:29 | NUR ---
REPORT TO AM RN. PT REMAINS IN BED WITH CONTACT PRECAUTIONS. NAD NOTED.
--- NOTE | 2019-02-27 07:30 | NUR ---
RECEIVED REPORT FROM TRADE ANALYST NURSE. PATIENT LYING DOWN IN BED SLEEPING, AROUSABLE BY VOICE. NO DISTRESS NOTED. AAOX1, APHASIC, MENTAL DISABILITY NOTED. NG TUBE IN PLACE, INFUSING FEEDING PER MD ORDERS. IV SITE INTACT, PATENT, AND INFUSING IVF PER MD ORDERS. REVIEWED PLAN OF CARE WITH PATIENT. UNABLE TO COMPREHEND, REINFORCEMENT NEEDED. SAFETY MEASURES IN PLACE, CALL LIGHT WITHIN REACH. WILL CONTINUE TO MONITOR.
[2019-02-27 07:57] LABS: BASOPHILS % (MANUAL) 0 % (0-2); EOSINOPHILS % (MANUAL) 4 % (0-4); LYMPHOCYTES % (MANUAL) 9 % (20-46); MONOCYTES % (MANUAL) 5 % (5-12)
[2019-02-27 08:00] VITALS: BP 103/55
[2019-02-27 08:09] LABS: MAGNESIUM 2.1 mg/dL (1.8-2.4); PHOSPHORUS 3.4 mg/dL (2.5-4.9)
[2019-02-27 08:16] LABS: CARBON DIOXIDE 27.8 mmol/L (21-32); CREATININE 0.8 mg/dL (0.6-1.3); POTASSIUM 3.8 mmol/L (3.5-5.1)
[2019-02-27] MEDS: TRIAMCINOLONE 0.1% OINT 80 GM TUBE TP SCH ×2 (09:36→20:29)
[2019-02-27] MEDS: DEXTROSE 5% 1,000 ML IV SCH ×2 (09:36→16:55)
[2019-02-27] MEDS: HYDROCORTISONE 1% CRM 30 GM TUBE TP SCH ×2 (09:36→20:28)
[2019-02-27] MEDS: BACITRACIN ZINC/POLYMYXIN B OINT 30 GM TUBE TP SCH ×2 (09:37→20:30)
--- NOTE | 2019-02-27 09:38 | NUR ---
PATIENT LYING DOWN IN BED. ASSISTED FURNITURE SPRAYER IN CLEANING AND REPOSITIONING PATIENT. NGTUBE IN PLACE. WILLIS CATH IN PLACE. SCHEDULED MEDICATIONS DUE GIVEN. WILL CONTINUE TO MONITOR.
[2019-02-27] MEDS: levETIRAcetam 500 MG in NACL 0.9% 100 ML IV SCH ×2 (10:10→20:27)
--- NOTE | 2019-02-27 12:00 | NUR ---
PATIENT LYING DOWN IN BED SLEEPING, AROUSABLE BY VOICE. NO DISTRESS NOTED. FLACC 0. CONDITION UNCHANGED. WILL CONTINUE TO MONITOR.
--- NOTE | 2019-02-27 14:00 | NUR ---
PATIENT LYING DOWN IN BED SLEEPING, AROUSABLE BY VOICE. CONDITION UNCHANGED. WILL CONTINUE TO MONITOR.
[2019-02-27 16:00] VITALS: BP 104/50
--- NOTE | 2019-02-27 16:41 | NUR ---
PATIENT LYING DOWN IN BED SLEEPING, AROUSABLE BY VOICE. NO DISTRESS NOTED. FLACC 0. CONDITION UNCHANGED. WILL CONTINUE TO MONITOR.
--- NOTE | 2019-02-27 17:00 | NUR ---
ASSISTED RECORDS MANAGEMENT ASSISTANT IN CLEANING AND REPOSITIONING PATIENT. PATIENT MORE ALERT AWAKE NOW, VERBALLY RESPONDING TO QUESTIONS. AAOX1, BEDSIDE EVALUATION PERFORMED PER DR. GARDNER REQUESTS. PATIENT ABLE TO EAT PUDDING, AND SWALLOW THIN REGULAR WATER THROUGH STRAW WITHOUT ANY PROBLEMS NOTED, NO COUGHING. NOTIFIED DR. GARDNER. PER DR. GARDNER, REMOVE NGTUBE, HOWEVER, PATIENT ALREADY PULLED OUT NGTUBE A WHILE AGO. WILL CONTINUE TO MONITOR.
--- NOTE | 2019-02-27 19:23 | NUR ---
RECIEVED PT AAOX1 , GARBLED SPEECH , CAN FOLLOW SIMPLE COMMANDS , IV CANUULLA -OUT - FOR REINSERTION . NGT - OUT - PULLED OUT BY PT PER NOD SAID. WITH SKIN EXCORCIATION ,PLAN OF CARE DISCUSSED BUT POOR UNDERSTANDING DUE TO MENTAL STATUS. ON SAFETY / FALL PRECAUTION PROTOCOL - BED ALARM ON , CALL LIGHT WITHIN REACGT , WITH FC DRAINING YELLOWISH U.O . WILL CONT. TO MONITOR..ON CONTACT ISOLATION.
--- NOTE | 2019-02-27 19:25 | NUR ---
GAVE REPORT TO PACKAGE MAKER NURSE FOR CONTINUITY OF CARE. PATIENT IN STABLE CONDITION.
[2019-02-27] MEDS: PETROLATUM WHITE 30 GM TUBE TP SCH (20:31)
[2019-02-28] VITALS: BP 111/60
--- NOTE | 2019-02-28 | NUR ---
SHOWING SIGNS OF AGITATION , TRYING TO GET OUT FROM THE BED , KEEPS TALKING IRRELEVANTLY - WILL MEDICATE ORDERED. WILL CONT. TO MONITOR.
[2019-02-28] MEDS: LORazepam 2 MG/ML VIAL IVP PRN (01:54)
--- NOTE | 2019-02-28 02:00 | NUR ---
MADE ROUNDS . SLEEPY , BUT NO SIGNS OF DISTRESS NOTED AT THIS TIME - JUST MEDICATED WITH ATIVAN. WILL CONT. TO MONITOR.
--- NOTE | 2019-02-28 04:00 | NUR ---
MADE ROUNDS , NO SIGNS OF DISTRESS NOTED AT THIS TIME. WILL CONT. TO MONITOR.
[2019-02-28] MEDS: DEXTROSE 5% 1,000 ML IV SCH ×2 (04:36→21:56)
--- NOTE | 2019-02-28 06:00 | NUR ---
MADE ROUNDS , SLEEPING BUT EASILY AROUSABLE , WILL CONT TO MONITOR.
--- NOTE | 2019-02-28 07:35 | NUR ---
ENDORSED TO AM SHIFT - STILL NO NGT - I TOLD TO AM SHIFT NURSE - PER GERHARD SAID HAVE WAIT THE ST EVALUATION BEFORE PROCEED FOR EITHER FOR NGT INSERTION OR MAY HAVE ORAL INTAKE - DEPENDS TO ST EVALUATION RESULT.
--- NOTE | 2019-02-28 07:38 | NUR ---
RECEIVED REPORT FROM LIEUTENANT FIRE FIGHTER NURSE FOR CONTINUITY OF CARE. PATIENT IS IN STABLE CONDITION. Addendum: 02/28/19 at 1209 by Drew Hernández RN PER LIEUTENANT FIRE FIGHTER NURSE NGT STILL NOT IN PLACE. AWAITING FOR ST EVALUATION.
[2019-02-28 07:41] LABS: BASOPHILS # (AUTO) 0.1 K/uL (0.00-0.22); BASOPHILS % (AUTO) 0.4 % (0.0-2.0); EOSINOPHILS # (AUTO) 1.6 K/uL (0-0.4); EOSINOPHILS % (AUTO) 8.6 % (0.0-4.0); HEMATOCRIT 34.8 % (36-48); HEMOGLOBIN 11.2 g/dL (12.0-16.0); LYMPHOCYTES # (AUTO) 1.5 K/uL (2.5-16.5); MEAN CORPUSCULAR HEMOGLOBIN 31 pg (27-31); MEAN CORPUSCULAR HGB CONC 32 g/dL (33-37); MEAN CORPUSCULAR VOLUME 97.1 fL (80-94); MONOCYTES # (AUTO) 0.8 K/uL (0.8-1.0); MONOCYTES % (AUTO) 4.3 % (1.7-9.3); NEUTROPHILS # (AUTO) 14.4 K/uL (1.8-7.7); PLATELET COUNT (AUTO) 98 K/uL (140-450); RED BLOOD CELL COUNT(AUTO) 3.58 MIL/uL (4.20-5.40); WHITE BLOOD COUNT (AUTO) 18.3 K/uL (4.8-10.8)
[2019-02-28 08:00] VITALS: BP 117/69
[2019-02-28 08:03] LABS: ANION GAP 11.9 (8-16); CARBON DIOXIDE 28.1 mmol/L (21-32); CREATININE 0.7 mg/dL (0.6-1.3)
[2019-02-28 08:06] LABS: MAGNESIUM 2.1 mg/dL (1.8-2.4); PHOSPHORUS 3.7 mg/dL (2.5-4.9)
[2019-02-28 08:17] LABS: NEUTROPHILS % (AUTO) 78.7 % (42.2-75.2)
--- NOTE | 2019-02-28 09:00 | NUR ---
PATIENT IS IN BED, AWAKE AND VERBALLY RESPONSIVE. RESPONDS TO NAME. IV INTACT AND PATENT TO RIGHT FOREARM. D5 INFUSING AT 75ML/HR. TOLERATING WELL. WILLIS CATHETER INTACT AND DRAINING CLEAR YELLOW URINE. SAFETY MEASURES IN PLACE. NO ACUTE DISTRESS NOTED. CALL LIGHT WITHIN REACH.
[2019-02-28] MEDS: HYDROCORTISONE 1% CRM 30 GM TUBE TP SCH ×2 (10:28→21:53)
[2019-02-28] MEDS: levETIRAcetam 500 MG in NACL 0.9% 100 ML IV SCH ×2 (10:28→21:53)
--- NOTE | 2019-02-28 10:30 | NUR ---
AM MEDICATIONS GIVEN ORDERED. MULTIPLE CREAMS APPLIED TO SKIN.
[2019-02-28] MEDS: BACITRACIN ZINC/POLYMYXIN B OINT 30 GM TUBE TP SCH ×2 (10:36→21:55)
[2019-02-28] MEDS: TRIAMCINOLONE 0.1% OINT 80 GM TUBE TP SCH ×2 (11:28→21:55)
[2019-02-28] MEDS ORDERED: NACL 0.9% 500 ML IV SCH (13:45)
--- NOTE | 2019-02-28 13:50 | NUR ---
IVF NS 500ML BOLUS STARTED ORDERED NOW.
--- NOTE | 2019-02-28 15:30 | NUR ---
PATIENT REPOSITIONED, PERICARE PROVIDED. NO ACUTE DISTRESS NOTED.
[2019-02-28 16:00] VITALS: BP 116/73
[2019-02-28 16:48] LABS: BASOPHILS % (AUTO) 0.2 % (0.0-2.0); EOSINOPHILS # (AUTO) 1.1 K/uL (0-0.4); EOSINOPHILS % (AUTO) 10.3 % (0.0-4.0); HEMOGLOBIN 11.7 g/dL (12.0-16.0); LYMPHOCYTES % (AUTO) 9.1 % (20.5-51.1); MEAN CORPUSCULAR HEMOGLOBIN 32 pg (27-31); MEAN CORPUSCULAR HGB CONC 33 g/dL (33-37); MEAN CORPUSCULAR VOLUME 97.1 fL (80-94); MONOCYTES # (AUTO) 0.6 K/uL (0.8-1.0); MONOCYTES % (AUTO) 5.1 % (1.7-9.3); NEUTROPHILS # (AUTO) 8.3 K/uL (1.8-7.7); NEUTROPHILS % (AUTO) 75.3 % (42.2-75.2); PLATELET COUNT (AUTO) 96 K/uL (140-450); RED BLOOD CELL COUNT(AUTO) 3.71 MIL/uL (4.20-5.40); RED CELL DISTRIBUTION WIDTH 15.9 % (11.6-13.7)
--- NOTE | 2019-02-28 17:53 | NUR ---
1300 Addendum: 02/28/19 at 1756 by Drew Hernández RN PATIENT IS IN BED, ASLEEP, ABLE TO WAKE. NO ACUTE DISTRESS NOTED. IVF D5 INFUSING AT 75 ML/HR VIA RIGHT HAND PERIPHERAL LINE.
--- NOTE | 2019-02-28 19:13 | NUR ---
ENDORSED PT TO PODIATRY TEACHER NURSEETHEL FOR CONTINUITY OF CARE.
--- NOTE | 2019-02-28 19:14 | NUR ---
RECIEVED BEDSIDE REPORT FROM DAY SHIFT NURSE. NO SOB NOTED ON ROOM AIR. IV SITE ON RFA, 22G, PATENT, INTACT AND ASYMPTOMATIC. NO FEEDING TUBE NOTED. WAITING FOR ST EVAL. WITH SKIN EXCORIATIONS, PLAN OF CARE DISCUSSED BUT POOR UNDERSTANDING DUE TO MENTAL STATUS. ON SAFETY / FALL PRECAUTION IN PLACE. CONTACT PRECAUTION IN PLACE FOR POSSIBLE SCABIES. BOARD UPDATED, F/C IN PLACE. BED IN LOW POSITION, CALL LIGHT WITHIN REACH ,
--- NOTE | 2019-02-28 21:53 | NUR ---
GIVEN PARUL MD ORDERED. APPLY HYDROCORTISONE, KENALOG, POLYSPORIN, AND VASELINE MD ORDERED. PT TOLERATED WELL. WILL CONTINUE TO MONITOR.
[2019-02-28] MEDS: PETROLATUM WHITE 30 GM TUBE TP SCH (21:55)
--- NOTE | 2019-02-28 23:45 | NUR ---
PHOTO TAKEN FOR WOUND IN FACE, BOTH HAND AND BOTH FEET. VS TAKEN. WITHIN PT'S BASELINE. WILL CONTINUE TO MONITOR.
[2019-03-01] VITALS: BP 102/59
--- NOTE | 2019-03-01 01:56 | NUR ---
PT SLEEPING IN BED. NO ACUTE DISTRESS NOTED. BED IN LOW POSITION, CALL LIGHT WITHIN REACH.
--- NOTE | 2019-03-01 03:58 | NUR ---
PT SLEEPING IN BED. NO ACUTE DISTRESS NOTED. BED IN LOW POSITION, CALL LIGHT WITHIN REACH.
--- NOTE | 2019-03-01 05:33 | NUR ---
PT SLEEPING IN BED. NO ACUTE DISTRESS NOTED. BED IN LOW POSITION, CALL LIGHT WITHIN REACH.
--- NOTE | 2019-03-01 06:54 | NUR ---
PT SLEEPING IN BED. NO ACUTE DISTRESS NOTED.
--- NOTE | 2019-03-01 07:15 | NUR ---
RECEIVED REPORT FROM DENTAL APPLIANCE MECHANIC NURSE ETHEL FOR CONTINUITY OF CARE. PT IN STABLE CONDITION. RESPIRATIONS EVEN AND UNLABORED, ROOM AIR. IV INTACT AND PATENT. SAFETY MEASURES IN PLACE. BED IN LOW POSITION. BED ALARM ON. CALL LIGHT AT BED SIDE. WILL CONTINUE TO MONITOR.
[2019-03-01 08:00] VITALS: BP 106/64
--- NOTE | 2019-03-01 08:11 | NUR ---
RECEIVED REPORT FROM ELECTRICAL ENGINEERING DRAFTING OFFICER NURSE ETHEL FOR CONTINUITY OF CARE. PT IN STABLE CONDITION. RESPIRATIONS EVEN AND UNLABORED, ROOM AIR. IV INTACT AND PATENT. SAFETY MEASURES IN PLACE. BED IN LOW POSITION. BED ALARM ON. CALL LIGHT AT BED SIDE. WILL CONTINUE TO MONITOR. Addendum: 03/01/19 at 0812 by Adelia Rahman RN REPORT RECEIVED AT 0715
[2019-03-01] MEDS: DEXTROSE 5% 1,000 ML IV SCH ×2 (08:55→10:52)
--- NOTE | 2019-03-01 10:45 | NUR ---
ST AT BEDSIDE FOR SWALLOW EVALUATION AT THIS TIME. PT IN STABLE CONDITION.
[2019-03-01] MEDS: levETIRAcetam 500 MG in NACL 0.9% 100 ML IV SCH (10:51)
[2019-03-01] MEDS: TRIAMCINOLONE 0.1% OINT 80 GM TUBE TP SCH (10:54)
[2019-03-01] MEDS: BACITRACIN ZINC/POLYMYXIN B OINT 30 GM TUBE TP SCH (10:54)
[2019-03-01] MEDS: HYDROCORTISONE 1% CRM 30 GM TUBE TP SCH (10:54)
--- NOTE | 2019-03-01 11:10 | NUR ---
*S.T. Bedside swallow reassessment completed* S: Pt seen at bedside w/ contact precautions. Cleared by AVIVA Delvalle to see pt and give P.O. trials. No family/caregiver present at time of tx. Pt awake and verbalized that she was happy to have P.O. trials given by clinician. O: P.O. trials of the following were provided in 5cc boluses via spoon, straw: applesauce, apple juice (thin), nectar thick apple juice and cracker. A: Pt demonstrated limited oral prep and mastication w/ cracker, cough response after swallows of thin liquid via straw. Pt remains at risk for aspiration and is unable to self-feed due to UE contraction. P: Pt presents w/ moderate oropharyngeal dysphagia c/b limited oral prep and mastication of solids and coughing after swallows of thin liquid. Recommend: 1) Advance to pureed diet, nectar thick liquids via cup or spoon sip only. No straws. 2) P.O. meds crushed and mixed w/ puree such as applesauce. 3) 1:1 feeder w/ aspiration precautions. 4) Swallow tx 1x/1 week to ensure tolerance of recommended diet textures. D/w pt results/recommendations. Pt unable to communicate understanding. Caregiver not present at time of reassessment. Endorsed to AVIVA Delvalle and Dr. Garcia, who indicated that pt's DC plan is to return to SNF on hospice. Time [id number]
--- NOTE | 2019-03-01 13:04 | NUR ---
GAVE REPORT TO RONAL FROM [facility]. RONAL WILL CALL BACK WITH TRANSPORTATION TIME.
--- NOTE | 2019-03-01 13:58 | NUR ---
[facility] CALLED TO REPORT TRANSPORT PICKUP AT 1545 BY ORLANDO Velásquez
--- NOTE | 2019-03-01 14:10 | NUR ---
PT LYING IN BED WATCHING TV AT THIS TIME IN STABLE CONDITION. BED IN LOW POSITION. BED ALARM ON. CALL LIGHT AT BEDSIDE. WILL CONTINUE TO MONITOR.
--- NOTE | 2019-03-01 15:50 | NUR ---
GAVE DISCHARGE INSTRUCTIONS TO PT. PT VERBALIZED UNDERSTANDING TO GOING HOME. GAVE REPORT TO TRANSPORT TEAM FOR CONTINUITY OF CARE. TRANSPORT TEAM VERBALIZED UNDERSTANDING. WILLIS REMOVED. IV REMOVED, LUMEN INTACT. ID BAND REMOVED. PT PLACED ON GURNEY IN STABLE CONDITION.
[2019-03-02] MEDS ORDERED: HYDRAGUARD CREAM TP ONE (03:05)
== END 2019-03-01 16:10 | disposition hospice, home (50) | DRG 64 ==
LOC: MED 13:51 → MTU 20:49
PROVIDERS: ADMIT General Practice; ATTEND General Practice
DX: I62.00 Nontraumatic subdural hemorrhage, unspecified (principal); G93.41 Metabolic encephalopathy; E43 Unspecified severe protein-calorie malnutrition; S02.831A Fracture of medial orbital wall, right side, initial encounter for closed fracture; E87.0 Hyperosmolality and hypernatremia; I42.9 Cardiomyopathy, unspecified; L40.9 Psoriasis, unspecified; I10 Essential (primary) hypertension; E86.0 Dehydration; S00.11XA Contusion of right eyelid and periocular area, initial encounter; D69.6 Thrombocytopenia, unspecified; L30.8 Other specified dermatitis; F79 Unspecified intellectual disabilities; S09.90XA Unspecified injury of head, initial encounter; W18.30XA Fall on same level, unspecified, initial encounter; L40.50 Arthropathic psoriasis, unspecified; E87.6 Hypokalemia; Z66 Do not resuscitate; Z68.24 Body mass index [BMI] 24.0-24.9, adult; Q90.9 Down syndrome, unspecified; Y93.89 Activity, other specified; Y92.89 Other specified places as the place of occurrence of the external cause; Y99.8 Other external cause status
CPT/HCPCS: 36415; 70450; 70486; 71045; 72125; 80048; 80053; 80305; 81003; 82550; 82553; 83036; 83605; 83735; 83880; 84100; 84439; 84443; 84484; 85025; 85610; 85730; 87040; 87081; 87086; 87205; 92526; 92610; 93005; 96374; 96376; 97110; 97112; 97116; 97161-GP; 97530; 99291; J1953; J2001; J2060; J3480; J7030; J7042; J7060; Q0092

== ENCOUNTER 2022-05-18 10:37 | Emergency (ER) | payer MEDICAID, OTHER ==
[~2022-05-18] VITALS: Ht 142.2 cm; Wt 63.5 kg
[~2022-05-18 10:37] MED LIST: CHOL100084 PO; CLOB0.0525 TP; DEXA5SUS BOTH EYES; HYD1C TP; KEN.1O TP; LEVE1000 PO; LORA10TA19 PO; SYN.075 PO; VITB12 PO; [UNRECOGNIZED DRUG - CODE] TP
[2022-05-18 10:45] VITALS: BP 103/80
[2022-05-18] MEDS ORDERED: CEPH-588 PO (12:28)
[2022-05-18] MEDS ORDERED: BACI-416 TP (12:28)
[2022-05-18] MEDS ORDERED: HYD1C TP (12:30)
--- NOTE | 2022-05-18 12:35 | NUR ---
D/C BY ANGIE HENAO.
== END 2022-05-18 12:35 | disposition home or self-care (01) ==
LOC: MED 10:37
DX: L25.9 Unspecified contact dermatitis, unspecified cause (principal); L03.311 Cellulitis of abdominal wall; I25.10 Atherosclerotic heart disease of native coronary artery without angina pectoris; Q90.9 Down syndrome, unspecified
CPT/HCPCS: 99283

== ENCOUNTER 2023-02-23 10:59 | Emergency (ER) | payer OTHER ==
[~2023-02-23] VITALS: Ht 139.7 cm; Wt 54.4 kg
[~2023-02-23 10:59] MED LIST changes: +CEPH-588 PO
[2023-02-23 11:22] VITALS: BP 100/75; PULSE 83; RESP 18; TEMP 97.9; O2SAT 97
[2023-02-23] MEDS ORDERED: CEPH-588 PO (11:23)
== END 2023-02-23 12:32 | disposition home or self-care (01) ==
LOC: MED 10:59
DX: L03.113 Cellulitis of right upper limb (principal); F03.90 Unspecified dementia, unspecified severity, without behavioral disturbance, psychotic disturbance, mood disturbance, and anxiety; Z86.69 Personal history of other diseases of the nervous system and sense organs; Z79.899 Other long term (current) drug therapy; Z79.2 Long term (current) use of antibiotics
CPT/HCPCS: 73110; 73130; 99284